=== PATIENT | male | born 1940 | race Caucasian/White ===

== ENCOUNTER 2016-10-05 08:46 | Inpatient (IN) | payer OTHER ==
--- NOTE | 2016-10-05 09:01 | EDPHY ---
H & P Stated Complaint: Low back pain x several months;now w/sciatic pain and numbness LLE Time Seen by Provider: 10/05/16 09:01 HPI/ROS: CHIEF COMPLAINT: Low back pain, increasing weakness left leg, paresthesias right leg HISTORY OF PRESENT ILLNESS: The patient has had a 3 month history of low back pain. He attributes this to initial injury sustained while working with horses. Over the past week he has had increasing weakness in his left leg and paresthesias in his left foot and right great toe. The patient denies bowel or bladder dysfunction. The patient states that he cannot fully support his weight on his left leg secondary to the weakness and decreased sensation. The patient denies recent fall or trauma. The patient is not on anticoagulants. The patient has no history of malignancy. The patient does have a history of hypertension. The patient denies any recent fever, illness, surgical procedure or dental procedure. REVIEW OF SYSTEMS: A comprehensive 10 point review of systems is otherwise negative aside from elements mentioned in the history of present illness. Source: Patient - Personal History Current Tetanus Diphtheria and Acellular Pertussis (TDAP): Yes - Medical/Surgical History Hx Cardiac Disease: Yes Other PMH: HTN - Social History Smoking Status: Never smoked - Physical Exam Exam: General Appearance: Alert, mild discomfort secondary to pain Eyes: Pupils equal and round no pallor or injection ENT, Mouth: Mucous membranes moist Respiratory: There are no retractions, lungs are clear to auscultation Cardiovascular: Regular rate and rhythm Gastrointestinal: Abdomen is soft and nontender, no masses, bowel sounds normal Neurological: Alert and oriented x4, 5/5 strength noted all 4 extremities, patient does have some difficulty keeping his left leg flexed, patient reports decreased sensation to light touch throughout the left lower extremity below the knee, patient reports decreased sensation to light touch in the right great toe Skin: Warm and dry, no rashes Musculoskeletal: Tenderness to palpation throughout the lower lumbar sacral spine Extremities: symmetrical, full range of motion Psychiatric: Patient is oriented X 3, there is no agitation Constitutional: Initial Vital Signs Temperature (C) 36.6 C 10/05/16 08:50 Heart Rate 80 10/05/16 08:50 Respiratory Rate 18 10/05/16 08:50 Blood Pressure 214/130 H 10/05/16 08:50 O2 Sat (%) 93 10/05/16 08:50 O2 Delivery Mode Room Air Allergies/Adverse Reactions: No Known Allergies Allergy (Verified 10/05/16 08:49) Home Medications: Medication Instructions Recorded Aspirin [Aspirin 81mg (*)] 81 mg PO DAILY 10/05/16 Lisinopril [Zestril 40 mg (*)] 40 mg PO 10/05/16 Metoprolol Succinate Xr [Toprol Xl 50 mg PO DAILY 10/05/16 50 mg (*)] Medical Decision Making - Diagnostics Imaging Results: Imaging Impressions Lumbar Spine MRI 10/05/16 09:11 Impression: 1. Limited sagittal T1 and localizer series only. Recommend completing study when the patient's pain is under control or consider CT lumbar spine for additional evaluation. 2. L2-L3: Severe central canal stenosis with suspected central disk herniation. 3. L4-L5: Moderate to severe central canal stenosis secondary to disk herniation. 4. L5-S1: Moderate to severe bilateral neural foraminal stenosis secondary to facet arthropathy. Findings and recommendations discussed with Emergency Department physician, Cade Galvan at 10:30 a.m. on October 05, 2016. Final report concurs with initial preliminary interpretation. ED Course/Re-evaluation: The patient presents to the ED with 3 months of low back pain and increasing lower extremity numbness and weakness. The patient was noted to be grossly neurologically intact without evidence of an obvious cauda equina syndrome on my initial evaluation. The patient did have an IV established. He received IV Ativan, morphine and fentanyl. The patient has been taken for a stat MRI of his lumbar spine given his reported history of gait instability and increasing paresthesias. The patient all was unable to tolerate the MRI despite IV Toradol, narcotics and benzodiazepines. A limited MRI did demonstrate evidence of a spinal disease at L2-3 and L4-5. I did consult with Dr. Griffin from Neurosurgery who did a preliminary review of the limited MRI. At this point we recommend admission to the hospital for a MRI under full conscious sedation. The patient will be admitted by the hospitalist to facilitate this today. The patient will be seen in consultation by Neurosurgery. I spoke with the hospitalist at 11:00 a.m.. The patient will be admitted by Dr. Healy. I will defer to the hospitalist for arranging MRI under deep sedation verses anesthesia. The patient was noted to be quite hypertensive upon arrival when he was in severe pain. Blood pressure is now 102/74 at 11:00 a.m.. Differential Diagnosis: Differential diagnosis considered includes lumbar disc herniation, central canal stenosis, epidural hematoma, spinal tumor, cauda equina syndrome - Data Points Laboratory Results: Laboratory Results 10/05/16 09:10 10/05/16 09:10 10/05/16 10/05/16 09:10 09:10 WBC 9.10 10^3/uL 10^3/uL (3.80-9.50) RBC 4.85 10^6/uL 10^6/uL (4.40-6.38) Hgb 16.1 g/dL g/dL (13.7-17.5) Hct 46.1 % % (40.0-51.0) MCV 95.1 fL fL (81.5-99.8) MCH 33.2 pg pg (27.9-34.1) MCHC 34.9 g/dL g/dL (32.4-36.7) RDW 12.6 % % (11.5-15.2) Plt Count 250 10^3/uL 10^3/uL (150-400) MPV 9.4 fL fL (8.7-11.7) Neut % (Auto) 77.7 % H % (39.3-74.2) Lymph % (Auto) 13.3 % L % (15.0-45.0) [place] % (Auto) 6.4 % % (4.5-13.0) Eos % (Auto) 1.9 % % (0.6-7.6) Baso % (Auto) 0.2 % L % (0.3-1.7) Nucleat RBC Rel Count 0.0 % % (0.0-0.2) Absolute Neuts (auto) 7.07 10^3/uL H 10^3/uL (1.70-6.50) Absolute Lymphs (auto) 1.21 10^3/uL 10^3/uL (1.00-3.00) Absolute Monos (auto) 0.58 10^3/uL 10^3/uL (0.30-0.80) Absolute Eos (auto) 0.17 10^3/uL 10^3/uL (0.03-0.40) Absolute Basos (auto) 0.02 10^3/uL 10^3/uL (0.02-0.10) Absolute Nucleated RBC 0.00 10^3/uL 10^3/uL (0-0.01) Immature Gran % 0.5 % % (0.0-1.1) Immature Gran # 0.05 10^3/uL 10^3/uL (0.00-0.10) Sodium 137 mEq/L mEq/L (134-144) Potassium 4.1 mEq/L mEq/L (3.5-5.2) Chloride 106 mEq/L mEq/L (97-110) Carbon Dioxide 19 mEq/l L mEq/l (22-31) Anion Gap 12 mEq/L mEq/L (8-16) BUN 15 mg/dL mg/dL (7-23) Creatinine 0.8 mg/dL mg/dL (0.7-1.3) Estimated GFR > 60 Glucose 110 mg/dL H mg/dL (70-100) Calcium 9.5 mg/dL mg/dL (8.5-10.4) Medications Given: Discontinued Medications Fentanyl (Sublimaze) 100 mcg IVP EDNOW ONE Stop: 10/05/16 09:40 Last Admin: 10/05/16 09:50 Dose: 100 mcg Ketorolac Tromethamine (Toradol) 30 mg IVP EDNOW ONE Stop: 10/05/16 10:30 Last Admin: 10/05/16 10:32 Dose: 30 mg Lorazepam (Ativan Injection) 1 mg IVP EDNOW ONE Stop: 10/05/16 09:12 Last Admin: 10/05/16 09:28 Dose: 1 mg Morphine Sulfate (Morphine) 4 mg IVP EDNOW ONE Stop: 10/05/16 09:12 Last Admin: 10/05/16 09:50 Dose: 4 mg Departure - Departure Disposition: [facility] Clinical Impression: Severe low back pain, Lumbar disc herniation, Lumbar stenosis Condition: Good Referrals: NONE *PRIMARY CARE P,. [Primary Care Provider] - As per Instructions
[2016-10-05] MEDS ORDERED: LORazepam 2 MG/ML INJ IVP ONE (09:11)
[2016-10-05 09:27] LABS: % IMMATURE GRANULYOCYTES 0.5 % (0.0-1.1); ABSOLUTE IMMATURE GRANULOCYTES 0.05 10^3/uL (0.00-0.10); ADD DIFF? NO; ADD MORPH? NO; ADD SCAN? NO; ATYPICAL LYMPHOCYTE FLAG 0 (0-99); FRAGMENT RBC FLAG 0 (0-99); HEMATOCRIT 46.1 % (40.0-51.0); HEMOGLOBIN 16.1 g/dL (13.7-17.5); LEFT SHIFT FLG 10 (0-99); LIPEMIA HEMOLYSIS FLAG 90 (0-99); MEAN CELL HEMOGLOBIN 33.2 pg (27.9-34.1); MEAN CELL HEMOGLOBIN CONCENTR. 34.9 g/dL (32.4-36.7); MEAN CELL VOLUME 95.1 fL (81.5-99.8); MEAN PLATELET VOLUME 9.4 fL (8.7-11.7); PLATELET CLUMPS FLAG 0 (0-99); PLATELET COUNT 250 10^3/uL (150-400); RED BLOOD CELL COUNT 4.85 10^6/uL (4.40-6.38); RED CELL DISTRIBUTION WIDTH 12.6 % (11.5-15.2)
[2016-10-05] MEDS ORDERED: fentaNYL 100 MCG/2 ML INJ IVP ONE (09:39)
[2016-10-05 09:52] LABS: ANION GAP 12 mEq/L (8-16); CALCIUM 9.5 mg/dL (8.5-10.4); CARBON DIOXIDE 19 mEq/l (22-31); CHLORIDE 106 mEq/L (97-110); CREATININE 0.8 mg/dL (0.7-1.3); GLOMERULAR FILTRATION RATE > 60; GLUCOSE 110 mg/dL (70-100); POTASSIUM 4.1 mEq/L (3.5-5.2); SODIUM 137 mEq/L (134-144)
[2016-10-05] MEDS ORDERED: KETOROLAC 30 MG/1 ML SDV ONE (10:12)
[2016-10-05] MEDS ORDERED: KETOROLAC 30 MG/1 ML SDV IVP ONE ×2 (10:29→16:00)
[2016-10-05] MEDS ORDERED: ONDANSETRON 4 MG/2 ML VIAL IVP PRN (14:27)
[2016-10-05] MEDS ORDERED: ACETAMINOPHEN 325 MG TAB PO PRN (14:27)
[2016-10-05] MEDS ORDERED: ONDANSETRON DISINTEGRATING 4 MG TAB PO PRN (14:27)
--- NOTE | 2016-10-05 15:00 | GHP ---
[f rep st] HISTORY AND PHYSICAL DATE OF ADMISSION: 10/05/2016 CHIEF COMPLAINT: Back pain. HISTORY OF PRESENT ILLNESS: A 76-year-old male with a history of hypertension. About 3 months ago, he had an incident with a horse where his shoulder was thrown back and it felt like he twisted his back in a traumatic way. Since then, he has been having pain in his back, as well as in his thighs that has been intermittent. It was better with sitting. However, the last week the pain has become unrelenting. It is associated with pain going down both legs, but especially the left leg. He als o has numbness and tingling from the knees down, and weakness. The unrelenting pain made him come t o the emergency department. He denies any fevers or chills. No chest pain or shortness of breath. REVIEW OF SYSTEMS: A 10-point review of systems was obtained and otherwise negative. PAST MEDICAL HISTORY: Hypertension. MEDICATIONS: Reviewed. SOCIAL HISTORY: No smoking, 1-2 drinks per night. FAMILY HISTORY: Reviewed and noncontributory. PHYSICAL EXAM: VITAL SIGNS: Afebrile, blood pressure is 121/78, heart rate 66, oxygen saturation 9 2% on room air. GENERAL: The patient is well developed, in no apparent distress. HEENT: Nonicter ic sclerae. Extraocular movements intact. Moist mucous membranes. NECK: Supple. No thyromegaly. LUNGS: Good effort. Clear to auscultation bilaterally. CARDIOVASCULAR: Regular rate and rhythm . No murmurs, gallops. ABDOMEN: Positive bowel sounds. Soft, nontender, nondistended. No hepato splenomegaly. EXTREMITIES: No clubbing, cyanosis, or edema. SKIN: Without rash, intact. NEUROLO GIC: Alert and oriented x3. He has decreased quadriceps strength on the right. Decreased sensatio n to light touch on the left lower extremity. PYSCH: Normal mood and affect. LABS: CBC and chemistry are normal. MRI of the lumbar spine was partially done due to pain, sugges ts severe central canal stenosis and disk herniation of L2 and L3, as well as L4-L5. ASSESSMENT: This is a 76-year-old male presenting with severe radiculopathy and back pain. PLAN: 1. Severe back pain, initial MRI is consistent with a herniated disk with the patient having signif icant radicular symptoms. Neurosurgery has been called. They were requesting a better MRI. The pa olivia states that he is feeling a lot better now in terms of pain than when he 1st came in, and feel s confident that he could complete the MRI. I would prefer we try an MRI without conscious sedation and premedicate with pain medications prior to getting anesthesia involved. I discussed the case w ith MRI. We will give another dose of Toradol in a couple hours and will premedicate with morphine. 2. Hypertension. Will continue his medications. /[id number]/MODL
[2016-10-05] MEDS: oxyCODONE IR 5 MG TAB PO PRN ×2 (15:44→20:48)
[2016-10-05] MEDS: NS 1,000 ML IV SCH (15:44)
--- NOTE | 2016-10-05 17:17 | GCON ---
[f rep st] CONSULTATION NEUROSURGERY CONSULTATION CHIEF COMPLAINT: Back pain and tingling in his bilateral legs. HISTORY OF PRESENT ILLNESS: The patient is a 76-year-old male patient who has a past medical history significant for hypertension only. He states that approximately 3 months ago he had a problem when he was working with his horse, and he had some trauma to his low back. Since then, he has been having pain in his back and into his thighs that comes and goes. He has been working with his friend who is a chiropractor on manipulations which has helped him somewhat. However, for the past week, the pain has become severe. He states that last night he was stuck on the floor and could not get up. In the morning, he was still feeling poorly and subsequently came to the emergency room for further evaluation. He complained of pain down both legs, but the left leg is worse. He has numbness and tingling in bilateral legs but more severe in the left leg from the knee down. He states that he feels like the weakness is below his knees as well. On examination today, the patient was resting in bed. He states he had been given some pain medication which did help with the pain. He reports that earlier in the day he was not able to lie flat and be still for an MRI. He states if he does not move, he is doing okay but still does have the numbness. At this time, his pain is fairly well managed. REVIEW OF SYSTEMS: Please see the above-mentioned in the HPI. PAST MEDICAL HISTORY: Hypertension. PAST SURGICAL HISTORY: None. SOCIAL HISTORY: The patient is recently retired. He is originally from the . He reports he has a glass of wine with lunch and dinner each day. He denies any drug use. No smoking. FAMILY HISTORY: The patient reports that his mother had known lumbar spine issues for a very long time. She ultimately of vaginal cancer. PHYSICAL EXAMINATION: VITAL SIGNS: Blood pressure 129/78, heart rate 66, respirations 16, O2 saturation is 92% on room air. Temperature is 36.6. GENERAL: Well-developed, well-nourished male patient in no acute distress. HEENT: His head is normocephalic and atraumatic. NEUROLOGIC: Cranial nerves 2 -12 are grossly intact. Motor examination of bilateral upper extremities is 5/ 5 for deltoid, triceps, biceps, and hand cooker helper. He has intact sensation over his arms and chest. Motor examination of the bilateral lower extremities is 5/ 5 for hip flexion, flexion/extension of the knee, and plantar and dorsiflexion. He has absent bilateral patellar reflexes. He has decreased sensation to light touch in bilateral lower extremities, however, is more severe on the left side. No clonus. Negative Babinski. He otherwise reports normal sensation throughout the normal dermatomal distribution of his body. LABORATORY: White blood cells 9.10, red blood cells 4.85, hemoglobin 16.1, hematocrit 46.1, RDW 12.6, platelet count is 250. Sodium 137, potassium 4.1, chloride 106, carbon dioxide 19, anion gap 12, BUN 15, creatinine 0.8, GFR greater than 60, glucose 110, calcium 9.5. IMAGING: Limited lumbar spine MRI without contrast, limited sagittal T1 and localizer series only, recommend completing study when patient's pain is under control or consider CT lumbar spine for additional evaluation. L2-L3 severe central canal stenosis with suspected central disk herniation, L4-L5 moderate to severe central canal stenosis secondary to disk herniation, L5-S1 moderate to severe bilateral neural foraminal stenosis secondary to facet arthropathy. IMPRESSION: This is a 76-year-old male patient with acute low back pain and tingling in his legs with some functional weakness who had a traumatic event approximately 3 months ago. Now with an acute exacerbation of his pain. PLAN: I have seen and examined the patient on [facility] [address] today. Other than some numbness in his legs, I did not appreciate any significant neurological deficit. I did not however get him out of bed due to his pain. Per RN report patient can barely bear weight when he tries to ambulate. He does not have any issues with bladder or bowel control. At this time, we will plan for the patient to complete a full MRI with sedation so we can better evaluate what he has going on in his low back. There is certainly a chance he may require surgery; however, at this time, I would not expect it to be an emergent surgery. I have discussed the patient with Dr. Edenilson Atkins who will be in to examine the patient as well today. The neurosurgery service will continue to follow along with this patient. Please contact our office with any additional questions or concerns. /[id number]/MODL MTDD
[2016-10-05] MEDS: METOPROLOL SUCCINATE XR 50 MG TAB PO SCH (20:48)
[2016-10-05] MEDS: MAGNESIUM OXIDE 400 MG TAB PO SCH (20:48)
[2016-10-05] MEDS: METHOCARBAMOL 500 MG TAB PO SCH (20:48)
[2016-10-06] MEDS: oxyCODONE IR 5 MG TAB PO PRN ×5 (05:53→21:19)
[2016-10-06] MEDS: METHOCARBAMOL 500 MG TAB PO SCH ×4 (05:53→21:17)
[2016-10-06] MEDS: MAGNESIUM OXIDE 400 MG TAB PO SCH (08:41)
[2016-10-06] MEDS: METOPROLOL SUCCINATE XR 50 MG TAB PO SCH ×2 (08:41→21:19)
[2016-10-06] MEDS: LISINOPRIL 40 MG TAB PO SCH (08:41)
--- NOTE | 2016-10-06 08:45 | SOAPPROG ---
[facility] Progress Note Assessment/Plan: Assessment: 76M with acute bilateral leg pain and inability to walk due to pain , MRI shows large disc herniation at L2-3 with severe canal stenosis, He also has lateral recess stenosis at L4-5 Plan: - will need L2-3 laminectomy/discectomy, Dr. Atkins saw him yesterday and is trying to plan surgery for Saturday - If able to ambulate safely, could go home before surgery and return as an outpatient, but he says he does not have help at home to be able to get around - continue pain control, will try some toradol - OK for DVT ppx 10/06/16 08:41 Subjective: pain tolerable when he is not moving Objective: Vital Signs Temp Pulse Resp BP Pulse Ox 36.8 C 62 17 165/99 H 91 L 10/06/16 07:54 10/06/16 07:54 10/06/16 07:54 10/06/16 07:54 10/06/16 07:54 10/05/16 10/06/16 10/07/16 05:59 05:59 05:59 Intake Total 1600 200 Output Total 550 Balance 1050 200 AAOx3 strength full at HF, KF/KE, PF/DF bilaterally loss of light touch/pinprick below the knee L>R - Pending Discharge Pending Discharge Within 24 Hours: No Pending Discharge Within 48 Hours: No ICD10 Worksheet Patient Problems: Problems Problem Status Onset Lumbar disc herniation Acute Lumbar stenosis Acute Severe low back pain Acute
[2016-10-06] MEDS: ENOXAPARIN 40 MG/0.4 ML SYR SC SCH (09:40)
[2016-10-06] MEDS ORDERED: BISACODYL 10 MG SUPP PR PRN ×2 (11:02→11:04)
[2016-10-06] MEDS ORDERED: MAGNESIUM HYDROXIDE 30 ML UDCUP PO PRN ×2 (11:02→11:04)
[2016-10-06] MEDS ORDERED: POLYETHYLENE GLYCOL 3350 17 GM PKT PO PRN ×2 (11:02→11:04)
[2016-10-06] MEDS ORDERED: LACTULOSE 20 GM/30 ML UDCUP PO PRN ×2 (11:02→11:04)
[2016-10-06] MEDS ORDERED: SENNOSIDES/DOCUSATE SODIUM TAB PO SCH (11:15)
[2016-10-06] MEDS: SENNOSIDES/DOCUSATE SODIUM TAB PO SCH ×2 (11:45→21:20)
--- NOTE | 2016-10-06 15:24 | HOSPPROG ---
Hospitalist Progress Note Assessment/Plan: * herniated lumbar disc with radicular symptoms * surgery planned for next week * continue pain control * holding aspirin * history of hypertension * DVT prophylaxis Subjective: pain seems better controlled Objective: Vital Signs Temp Pulse Resp BP Pulse Ox 36.8 C 64 17 165/99 H 88 L 10/06/16 07:54 10/06/16 09:40 10/06/16 07:54 10/06/16 07:54 10/06/16 09:40 10/05/16 10/06/16 10/07/16 05:59 05:59 05:59 Intake Total 1600 200 Output Total 550 Balance 1050 200 - Physical Exam Constitutional: no apparent distress, appears nourished, not in pain Eyes: anicteric sclera, EOMI Ears, Nose, Mouth, Throat: moist mucous membranes, hearing normal Respiratory: no respiratory distress Skin: warm Neurologic: AAOx3 Psychiatric: interacting appropriately, not anxious, not encephalopathic, thought process linear ICD10 Worksheet Patient Problems: Problems Problem Status Onset Lumbar disc herniation Acute Lumbar stenosis Acute Severe low back pain Acute
[2016-10-06] MEDS: traMADol 50 MG TAB PO PRN (19:36)
[2016-10-07] MEDS: oxyCODONE IR 5 MG TAB PO PRN ×7 (01:25→23:37)
[2016-10-07] MEDS: METHOCARBAMOL 500 MG TAB PO SCH ×4 (06:02→20:58)
[2016-10-07] MEDS: SENNOSIDES/DOCUSATE SODIUM TAB PO SCH ×2 (08:52→20:58)
[2016-10-07] MEDS: LISINOPRIL 40 MG TAB PO SCH (08:53)
[2016-10-07] MEDS: METOPROLOL SUCCINATE XR 50 MG TAB PO SCH ×2 (08:54→20:58)
[2016-10-07] MEDS: MAGNESIUM OXIDE 400 MG TAB PO SCH (08:54)
--- NOTE | 2016-10-07 09:48 | SOAPPROG ---
[facility] Progress Note Assessment/Plan: Assessment: 76M with acute bilateral leg pain and inability to walk due to pain , MRI shows large disc herniation at L2-3 with severe canal stenosis, He also has lateral recess stenosis at L4-5 Plan: - will need L2-3 laminectomy/discectomy, Dr. Atkins trying to plan surgery for Saturday - probably not ambulating well enough to d/c home prior to surgery - could try toradol for pain control, I will order this - OK for DVT ppx 10/06/16 08:41 10/07/16 09:43 Subjective: c/o more back pain than leg pain today Objective: Vital Signs Temp Pulse Resp BP Pulse Ox 37.5 C 78 16 155/92 H 84 L 10/07/16 08:00 10/07/16 08:00 10/07/16 08:00 10/07/16 08:00 10/07/16 08:00 10/06/16 10/07/16 10/08/16 05:59 05:59 05:59 Intake Total 1600 1650 Output Total 550 850 250 Balance 1050 800 -250 exam stable, mild numbness below the knee on the left, otherwise full strength/ sensation - Pending Discharge Pending Discharge Within 24 Hours: No Pending Discharge Within 48 Hours: No ICD10 Worksheet Patient Problems: Problems Problem Status Onset Lumbar disc herniation Acute Lumbar stenosis Acute Severe low back pain Acute
[2016-10-07] MEDS: KETOROLAC 15 MG/1 ML SDV IVP SCH ×3 (10:32→23:37)
[2016-10-07] MEDS: ENOXAPARIN 40 MG/0.4 ML SYR SC SCH (10:32)
--- NOTE | 2016-10-07 11:42 | HOSPPROG ---
Hospitalist Progress Note Assessment/Plan: * herniated lumbar disc with radicular symptoms * surgery planned for next week * continue pain control * holding aspirin * history of hypertension * DVT prophylaxis Subjective: pain well controlled. No new complaints Objective: Vital Signs Temp Pulse Resp BP Pulse Ox 37.5 C 78 16 155/92 H 84 L 10/07/16 08:00 10/07/16 08:00 10/07/16 08:00 10/07/16 08:00 10/07/16 08:00 10/06/16 10/07/16 10/08/16 05:59 05:59 05:59 Intake Total 1600 1650 Output Total 550 850 350 Balance 1050 800 -350 - Physical Exam Constitutional: no apparent distress, appears nourished, not in pain Eyes: anicteric sclera, EOMI Ears, Nose, Mouth, Throat: moist mucous membranes Respiratory: no respiratory distress Neurologic: AAOx3 Psychiatric: interacting appropriately, not anxious, not encephalopathic, thought process linear ICD10 Worksheet Patient Problems: Problems Problem Status Onset Lumbar disc herniation Acute Lumbar stenosis Acute Severe low back pain Acute
[2016-10-07] MEDS: traMADol 50 MG TAB PO PRN (21:02)
[2016-10-08] MEDS: KETOROLAC 15 MG/1 ML SDV IVP SCH ×4 (04:56→23:57)
[2016-10-08] MEDS: oxyCODONE IR 5 MG TAB PO PRN ×2 (04:57→23:57)
[2016-10-08] MEDS: METHOCARBAMOL 500 MG TAB PO SCH ×4 (04:57→20:03)
--- NOTE | 2016-10-08 07:32 | NEUSURGPN ---
Assessment/Plan: Assessment: 76 yo M with acute bilateral leg pain and inability to walk due to pain, MRI shows large disc herniation at L2-3 with severe canal stenosis, He also has lateral recess stenosis at L4-5 Plan: - will need L2-3 laminectomy/discectomy, Dr. Atkins trying to plan surgery for Saturday - probably not ambulating well enough to d/c home prior to surgery - NPO after midnight - orders in - will confirm with Dr Sarmiento regarding plan for surgery for tomorrow - could try toradol for pain control-Dr Griffin ordered this already - OK for DVT ppx - call for any changes or issues - take medications as directed Subjective: Awake and alert. NAD. Eating/drinking and voiding. No f/c/n/v/d. Objective: AAO x 3, PERRLA/EOMI no droop CN 2-12 grossly intact +lt touch 5/5 BUE/BLE = Neuro Check Frequency: per routine Urinary Catheter in Place: No - Physician Discussed Patient with : Wilbert Patient Seen by : Wilbert Neurosurgery Physical Exam - Vitals, I&O, Labs I and O 10/07/16 10/08/16 10/09/16 05:59 05:59 05:59 Intake Total 1650 1050 Output Total 850 775 Balance 800 275 Intake: Oral (ml) 1650 1050 Output: Urine (ml) 850 775 Bedside Commode 600 250 Urinal 250 525 Other: Intake Quantity Yes Yes Sufficient Number of Voids Bedside Commode 1 1 Urinal 1 Number of Stools Bedside Commode 1 1 Vital Signs Temp Pulse Resp BP Pulse Ox 37.2 C 67 15 123/82 H 89 L 10/07/16 23:34 10/07/16 23:34 10/07/16 23:34 10/07/16 23:34 10/07/16 23:34 ICD10 Worksheet Patient Problems: Problems Problem Status Onset Lumbar disc herniation Acute Lumbar stenosis Acute Severe low back pain Acute
[2016-10-08] MEDS: SENNOSIDES/DOCUSATE SODIUM TAB PO SCH ×2 (08:24→21:15)
[2016-10-08] MEDS: ENOXAPARIN 40 MG/0.4 ML SYR SC SCH ×2 (08:24→08:52)
[2016-10-08] MEDS: METOPROLOL SUCCINATE XR 50 MG TAB PO SCH ×2 (08:25→20:03)
[2016-10-08] MEDS: LISINOPRIL 40 MG TAB PO SCH (08:25)
[2016-10-08] MEDS: MAGNESIUM OXIDE 400 MG TAB PO SCH (08:26)
--- NOTE | 2016-10-08 15:58 | HOSPPROG ---
Hospitalist Progress Note Assessment/Plan: * herniated lumbar disc with radicular symptoms * surgery planned for tomorrow * continue pain control * holding aspirin * history of hypertension * DVT prophylaxis * on hold for surgery tomorrow Subjective: no new complaints. pain well controlled Objective: Vital Signs Temp Pulse Resp BP Pulse Ox 37.2 C 59 L 16 122/74 H 90 L 10/08/16 15:31 10/08/16 15:31 10/08/16 15:31 10/08/16 15:31 10/08/16 15:31 10/07/16 10/08/16 10/09/16 05:59 05:59 05:59 Intake Total 1650 1050 Output Total 850 775 Balance 800 275 - Physical Exam Constitutional: no apparent distress, appears nourished, not in pain Eyes: anicteric sclera Ears, Nose, Mouth, Throat: moist mucous membranes, hearing normal Cardiovascular: regular rate and rhythym, no murmur, rub, or gallop Respiratory: no respiratory distress, no rales or rhonchi, clear to auscultation ICD10 Worksheet Patient Problems: Problems Problem Status Onset Lumbar disc herniation Acute Lumbar stenosis Acute Severe low back pain Acute
[2016-10-08] MEDS: NS 1,000 ML IV SCH (23:58)
[2016-10-09] MEDS: KETOROLAC 15 MG/1 ML SDV IVP SCH ×2 (05:33→12:06)
[2016-10-09] MEDS: METHOCARBAMOL 500 MG TAB PO SCH ×4 (05:36→20:08)
[2016-10-09] MEDS ORDERED: LR 1,000 ML IV ONE (06:12)
[2016-10-09] MEDS ORDERED: BACITRACIN 50,000 UNITS/10 ML SYR IRR ONE (06:48)
[2016-10-09] MEDS ORDERED: THROMBIN (BOVINE) 5,000 UNIT VIAL TP ONE (06:48)
[2016-10-09] MEDS ORDERED: BUPIVACAINE/EPI 0.25% 30 ML SDV ONE (06:48)
[2016-10-09] MEDS ORDERED: PROPOFOL/EMULSION 500 MG/50 ML BOTTLE IV ONE ×3 (07:04→07:06)
[2016-10-09] MEDS ORDERED: REMIFENTANIL HCL 1 MG VIAL ONE ×3 (07:04)
[2016-10-09] MEDS ORDERED: HYDROmorphONE/DILAUDID 2 MG/ML INJ ONE (07:06)
[2016-10-09] MEDS ORDERED: ceFAZolin 2 GM/DEXTROSE 100 ML IV ONE (07:15)
[2016-10-09] MEDS ORDERED: ONDANSETRON 4 MG/2 ML VIAL ONE (07:38)
[2016-10-09] MEDS ORDERED: DEXAMETHASONE 4 MG/ML VIAL ONE ×2 (07:38)
[2016-10-09] MEDS ORDERED: epHEDrine SULFATE 10 MG/ML SYR ONE (07:38)
[2016-10-09] MEDS ORDERED: NALOXONE HCL 0.4 MG/ML INJ IVP PRN (08:07)
[2016-10-09] MEDS ORDERED: HYDROCODONE/APAP 5/325 TAB PO PRN (08:07)
[2016-10-09] MEDS ORDERED: ACETAMINOPHEN 500 MG TAB PO PRN (08:07)
[2016-10-09] MEDS ORDERED: ONDANSETRON 4 MG/2 ML VIAL IVP PRN ×2 (08:07→09:05)
[2016-10-09] MEDS ORDERED: LR 500 ML IV PRN (08:07)
[2016-10-09] MEDS ORDERED: OXYCODONE/APAP 5/325 TAB PO PRN (08:07)
[2016-10-09] MEDS ORDERED: fentaNYL 100 MCG/2 ML INJ IVP PRN (08:07)
[2016-10-09] MEDS ORDERED: ALBUTEROL 3 ML DEYVIAL IH PRN (08:07)
[2016-10-09] MEDS ORDERED: HYDROmorphONE/DILAUDID 1 MG/ML SYR IVP PRN (08:07)
--- NOTE | 2016-10-09 08:07 | PDANEPAE ---
ANE History of Present Illness 76yo M for Lumbar Microdisc ANE Past Medical History - Cardiovascular History Hx Hypertension: Yes Hx Palpitations: Yes - Pulmonary History Hx COPD: No Hx Asthma/Reactive Airway Disease: No Hx Recent Upper Respiratory Infection: No Hx Oxygen in Use at Home: No - Renal History Hx Renal Disorders: No - Liver History Hx Hepatic Disorders: No - GI History Hx Gastrointestinal Disorders: No ANE Review of Systems Review of systems is: negative - Exercise capacity Exercise capacity: limited by disability ANE Patient History - Allergies Allergies/Adverse Reactions: No Known Allergies Allergy (Verified 10/05/16 08:49) - Home Medications Home medications: home medication list seen and reviewed Home Medications: Aspirin [Aspirin 81mg (*)] 81 mg PO DAILY 10/05/16 [Last Taken Unknown] Gabapentin [Neurontin 100 MG (*)] 200 mg PO BID 10/05/16 [Last Taken 10/04/16 100 MG] Herbals/Supplements -Info Only 1 ea PO DAILY 10/05/16 [Last Taken Unknown] Lisinopril [Zestril 40 mg (*)] 40 mg PO DAILY 10/05/16 [Last Taken Unknown] Metoprolol Succinate Xr [Toprol Xl 50 mg (*)] 50 mg PO BID 10/05/16 [Last Taken Unknown] traMADol HCL [Ultram] 50 - 100 mg PO BID PRN 10/05/16 [Last Taken 10/04/16] - NPO status NPO Since - Liquids (Date): 10/09/16 NPO Since - Liquids (Time): 00:00 NPO Since - Solids (Date): 10/09/16 NPO Since - Solids (Time): 00:00 - Smoking Hx Smoking Status: Never smoked - Alcohol Use Alcohol Use: Occasionally ANE Labs/Vital Signs - Labs Result Diagrams: 10/05/16 09:10 10/05/16 09:10 - Vital Signs Blood Pressure: 157/92 Heart Rate: 60 Respiratory Rate: 15 O2 Sat (%): 93 Height: 180.34 cm Weight: 86.183 kg ANE Physical Exam - Airway Neck exam: FROM Mallampati Score: Class 2 Mouth exam: normal dental/mouth exam - Pulmonary Pulmonary: clear to auscultation - Cardiovascular Cardiovascular: regular rate and rhythym - ASA Status ASA Status: II ANE Anesthesia Plan Anesthesia Plan: general endotracheal anesthesia
--- NOTE | 2016-10-09 09:04 | POSTOPPROG ---
Post Op Note Date of Operation: 10/09/16 Surgeon: Edenilson Atkins Food Inspector: German Anesthesiologist: Chip Anesthesia: GET(General Endotracheal) Pre-op Diagnosis: L2/3 HNP Post-op Diagnosis: same Indication: Leg pain, severe spinal stenosis Procedure: Left L2/3 Microdiscectomy Findings: L2/3 HNP Inf/Abcess present in the surg proc area at time of surgery?: No EBL: 100-500 Complications: none
[2016-10-09] MEDS ORDERED: ONDANSETRON DISINTEGRATING 4 MG TAB PO PRN (09:05)
[2016-10-09] MEDS ORDERED: diphenhydrAMINE 25 MG CAP PO PRN (09:05)
--- NOTE | 2016-10-09 09:12 | POSTANESTH ---
Post Anesthetic Evaluation Cardiovascular Status: Normal, Stable Respiratory Status: Normal, Stable Level of Consciousness/Mental Status: Can Participate in Eval Pain Control: Adequate, Prn Tx Ordered Nausea/Vomiting Control: Adequate, Prn Tx Ordered Complications Possibly Related to Anesthesia: None Noted
--- NOTE | 2016-10-09 09:59 | SOAPPROG ---
SOAP Progress Note Assessment/Plan: Assessment: POST OP CHECK: doing well after Left L2/3 LUIS Plan: CPM in PACU. transfer back to floor per protocol 10/09/16 09:56 10/09/16 09:57 Subjective: awake, alert, uncomfortable Objective: Vital Signs Temp Pulse Resp BP Pulse Ox 36.6 C 60 15 157/92 H 93 10/09/16 09:29 10/09/16 08:06 10/09/16 08:06 10/09/16 08:06 10/09/16 08:06 10/08/16 10/09/16 10/10/16 05:59 05:59 05:59 Intake Total 1050 950 Output Total 775 750 150 Balance 275 -750 800 Neuro: CRANDALL to command, sens+Lt right DF/EHL weakness unchanged 4-/5 left DF/EHL 5/5 Vitals: BP: 118/73 HR: 76 02: 97% ICD10 Worksheet Patient Problems: Problems Problem Status Onset Lumbar disc herniation Acute Lumbar stenosis Acute Severe low back pain Acute
[2016-10-09] MEDS: METOPROLOL SUCCINATE XR 50 MG TAB PO SCH ×2 (10:05→20:08)
[2016-10-09] MEDS: LISINOPRIL 40 MG TAB PO SCH (10:05)
[2016-10-09] MEDS: MAGNESIUM OXIDE 400 MG TAB PO SCH (10:05)
[2016-10-09] MEDS: SENNOSIDES/DOCUSATE SODIUM TAB PO SCH ×2 (10:06→20:09)
--- NOTE | 2016-10-09 12:11 | GOP ---
[f rep st] OPERATIVE REPORT DATE OF OPERATION: 10/09/2016 SURGEON: Edenilson Atkins MD MANUFACTURING LAB TECHNICIAN: DANIEL Loera. ANESTHESIA: General endotracheal. PREOPERATIVE DIAGNOSIS: Large left paracentral and central L2-3 disk herniation with critical spina l stenosis and progressive weakness, intractable pain and dysfunction. Failed conservative care. POSTOPERATIVE DIAGNOSIS: Large left paracentral and central L2-3 disk herniation with critical spin al stenosis and progressive weakness, intractable pain and dysfunction. Failed conservative care. PROCEDURE PERFORMED: Minimally invasive left-sided L2-3 posterior hemilaminectomy, medial facetecto my, and diskectomy with use of intraoperative microscopy with fluoroscopy. FINDINGS: ESTIMATED BLOOD LOSS: 150 cc INDICATIONS: The patient is a 76-year-old male with intractable low back pain, left lower extremity radicular discomfort and progressive weakness who has a gigantic L2-3 disk herniation, and presents for surgical decompression through a minimally invasive approach after failing conservative care. DESCRIPTION OF PROCEDURE: After informed consent was obtained, the patient was taken to the operati ng room and placed in a prone position on the Cristopher frame. The lumbosacral area was prepped and dr aped in a sterile fashion. After fluoroscopic localization of correct levels, the subcutaneous and intramuscular tissues were infiltrated with local anesthesia. A midline linear incision was then cr eated over the L2-3 spinous processes. This was carried down the fascial layer, which was then inci sed using the monopolar electrocautery and carried in a subperiosteal plane along the spinous proces ses of the lamina on the left. Intraoperative fluoroscopy was again utilized to verify the correct level. Following this, a left-sided L2-3 posterior hemilaminectomy defect was created using the Str [employer] drill system with a massive fluted bur and the Kerrison rongeurs. The ligamentum flavum was ca refully elevated and the dura noted to be draped over a very large disk herniation. This required a slight medial facetectomy in order to adequately get around the thecal sac and nerve root. Care wa s taken to not remove too much of the joint to destabilize the level. Following this, the shoulder of the L3 nerve root was very carefully retracted medially and multiple large pieces of disk herniat ion were identified and removed with the help of the Alex instrument and the nerve hook in order to palpate and pull disk herniations out from more medially where there was an extremely large amoun t of disk material. The area was carefully explored rostrally, caudally, medially and laterally and all disk material removed. There was quite a bit of epidural bleeding from the veins that were ute y congested. These were coagulated using careful bipolar electrocauterization under high-power micr oscopy. The wound and epidural space were then copiously irrigated with antibiotic irrigation and m eticulous hemostasis was achieved. The subcutaneous and intramuscular tissues were re-infiltrated w ith local anesthesia and the wound was closed in a layered fashion using interrupted Vicryl sutures followed by Steri-Strips on the skin. COMPLICATIONS: None. DISPOSITION: The patient is currently in the process of being repositioned for extubation. /[id number]/MODL
[2016-10-09] MEDS: ceFAZolin 2 GM/DEXTROSE 100 ML IV SCH ×2 (13:49→22:05)
--- NOTE | 2016-10-09 15:13 | HOSPPROG ---
Hospitalist Progress Note Assessment/Plan: L2-L3 disc herniation s/p discectomy - POD #0. Post-op management per neurosurgery, pain control, PT/OT. Hypertension - well controlled, cont lisinopril, metoprolol DVT PPLX - Lovenox Full code Dispo - cont inpt, PT/OT Subjective: Pt feels well post-op. Denies pain. No N/V. No CP or SOB. Doesn' t feel ready to walk yet. Objective: Vital Signs Temp Pulse Resp BP Pulse Ox 36.7 C 66 17 126/84 H 94 10/09/16 12:59 10/09/16 12:59 10/09/16 12:59 10/09/16 12:59 10/09/16 12:59 10/08/16 10/09/16 10/10/16 05:59 05:59 05:59 Intake Total 1050 950 Output Total 775 750 500 Balance 275 -750 450 - Physical Exam Constitutional: no apparent distress Eyes: PERRL Ears, Nose, Mouth, Throat: moist mucous membranes Cardiovascular: regular rate and rhythym Respiratory: no respiratory distress, clear to auscultation Gastrointestinal: normoactive bowel sounds, soft, non-tender abdomen Skin: warm Neurologic: AAOx3 Psychiatric: interacting appropriately ICD10 Worksheet Patient Problems: Problems Problem Status Onset Lumbar disc herniation Acute Lumbar stenosis Acute Severe low back pain Acute
[2016-10-09] MEDS ORDERED: CALCIUM CARBONATE 500 MG CHEWABLE TAB PO PRN (15:27)
[2016-10-09] MEDS: oxyCODONE IR 5 MG TAB PO PRN (20:08)
[2016-10-09] MEDS: FAMOTIDINE 20 MG TAB PO SCH (20:08)
[2016-10-09] MEDS: traMADol 50 MG TAB PO PRN (22:10)
[2016-10-10] MEDS: oxyCODONE IR 5 MG TAB PO PRN ×3 (04:37→20:36)
[2016-10-10] MEDS: METHOCARBAMOL 500 MG TAB PO SCH ×4 (04:37→20:33)
[2016-10-10 05:09] LABS: % IMMATURE GRANULYOCYTES 0.5 % (0.0-1.1); ABSOLUTE IMMATURE GRANULOCYTES 0.05 10^3/uL (0.00-0.10); ADD DIFF? NO; ADD MORPH? NO; ADD SCAN? NO; ATYPICAL LYMPHOCYTE FLAG 0 (0-99); FRAGMENT RBC FLAG 0 (0-99); HEMOGLOBIN 11.7 g/dL (13.7-17.5); LEFT SHIFT FLG 0 (0-99); LIPEMIA HEMOLYSIS FLAG 90 (0-99); MEAN CELL HEMOGLOBIN 33.1 pg (27.9-34.1); MEAN CELL HEMOGLOBIN CONCENTR. 34.4 g/dL (32.4-36.7); MEAN CELL VOLUME 96.3 fL (81.5-99.8); MEAN PLATELET VOLUME 9.9 fL (8.7-11.7); PLATELET CLUMPS FLAG 0 (0-99); PLATELET COUNT 227 10^3/uL (150-400); RED BLOOD CELL COUNT 3.53 10^6/uL (4.40-6.38); RED CELL DISTRIBUTION WIDTH 12.4 % (11.5-15.2)
[2016-10-10 05:33] LABS: ANION GAP 9 mEq/L (8-16); CALCIUM 8.8 mg/dL (8.5-10.4); CARBON DIOXIDE 21 mEq/l (22-31); CHLORIDE 105 mEq/L (97-110); CREATININE 0.8 mg/dL (0.7-1.3); GLOMERULAR FILTRATION RATE > 60; GLUCOSE 108 mg/dL (70-100); POTASSIUM 4.4 mEq/L (3.5-5.2); SODIUM 135 mEq/L (134-144)
[2016-10-10] MEDS: FAMOTIDINE 20 MG TAB PO SCH ×2 (08:20→20:33)
[2016-10-10] MEDS: SENNOSIDES/DOCUSATE SODIUM TAB PO SCH ×2 (08:20→20:33)
[2016-10-10] MEDS: METOPROLOL SUCCINATE XR 50 MG TAB PO SCH ×2 (08:20→20:33)
[2016-10-10] MEDS: LISINOPRIL 40 MG TAB PO SCH (08:20)
[2016-10-10] MEDS: MAGNESIUM OXIDE 400 MG TAB PO SCH (08:20)
--- NOTE | 2016-10-10 10:43 | SOAPPROG ---
SOAP Progress Note Assessment/Plan: Assessment: POD #1 s/p Left L2/3 LUIS Per RN, patient has not been compliant with PT ongoing weakness in legs, but feels like both of his Dorsiflexors are stronger left leg pain improved Plan: PT/OT as tolerated Change dressing Dispo likely to rehab due to need for walking assistance 10/10/16 12:28 Subjective: awake, alert, pain controlled. He notes his left leg pain is improved. He feels like both foot DF are stronger as well. Objective: Vital Signs Temp Pulse Resp BP Pulse Ox 36.5 C 60 15 124/82 H 95 10/10/16 07:47 10/10/16 07:47 10/10/16 07:47 10/10/16 07:47 10/10/16 07:47 Laboratory Results 10/10/16 04:36 10/10/16 04:36 10/09/16 10/10/16 10/11/16 05:59 05:59 05:59 Intake Total 1750 Output Total 750 950 Balance -750 800 Neuro: CRANDALL, sens +LT ongoing right foot weakness in DF/EHL 4/5 ambulates w walker and standby assist due to left leg buckling Dressing: CLean and dry. needs to be changed though b/c it isn't sticking well ICD10 Worksheet Patient Problems: Problems Problem Status Onset Lumbar disc herniation Acute Lumbar stenosis Acute Severe low back pain Acute
[2016-10-10] MEDS: KETOROLAC 15 MG/1 ML SDV IVP SCH ×2 (12:28→17:56)
--- NOTE | 2016-10-10 13:16 | HOSPPROG ---
Hospitalist Progress Note Assessment/Plan: L2-L3 disc herniation s/p discectomy - POD #1. Post-op management per neurosurgery, pain control, PT/OT. Hypertension - well controlled, cont lisinopril, metoprolol DVT PPLX - Lovenox Full code Dispo - cont inpt, PT/OT. Will go to Rehab in [place], possibly dc tomorrow or whenever cleared by surgery service Subjective: Pt doing well. Still some pain, tingling in LLE. Objective: Vital Signs Temp Pulse Resp BP Pulse Ox 37.2 C 80 16 133/77 H 91 L 10/10/16 11:57 10/10/16 11:57 10/10/16 11:57 10/10/16 11:57 10/10/16 11:57 Laboratory Results 10/10/16 04:36 10/10/16 04:36 10/09/16 10/10/16 10/11/16 05:59 05:59 05:59 Intake Total 1750 Output Total 750 950 Balance -750 800 - Physical Exam Constitutional: no apparent distress Eyes: PERRL Ears, Nose, Mouth, Throat: moist mucous membranes Cardiovascular: regular rate and rhythym Respiratory: no respiratory distress Skin: warm Musculoskeletal: other (LE sensation intact) Neurologic: AAOx3 Psychiatric: interacting appropriately ICD10 Worksheet Patient Problems: Problems Problem Status Onset Lumbar disc herniation Acute Lumbar stenosis Acute Severe low back pain Acute
[2016-10-11] MEDS: KETOROLAC 15 MG/1 ML SDV IVP SCH ×3 (02:21→12:39)
--- NOTE | 2016-10-11 05:40 | SOAPPROG ---
SOAP Progress Note Assessment/Plan: Assessment: POD #2 s/p Left L2/3 LUIS ongoing weakness in legs, but feels like both of his Dorsiflexors are stronger left leg pain improved Plan: PT/OT as tolerated Added Keflex 500mg PO Q6 hrs x 24 hrs. pt had first dose this AM Dispo likely to rehab due to need for walking assistance Ok to DC from Neurosurg standpoint Discussed with Dr. Sarmiento 10/11/16 07:27 Subjective: asleep, wakes easily and states his pain is controlled no new issues Objective: Vital Signs Temp Pulse Resp BP Pulse Ox 37.2 C 61 16 123/79 H 91 L 10/11/16 04:00 10/11/16 04:00 10/11/16 04:00 10/11/16 04:00 10/11/16 04:00 Laboratory Results 10/10/16 04:36 10/10/16 04:36 10/09/16 10/10/16 10/11/16 05:59 05:59 05:59 Intake Total 1750 250 Output Total 750 950 Balance -750 800 250 Incision:CDI, steri strips in place, no drainage Neuro: CRANDALL, sens +LT right DF weakness improved left 5-/5 ICD10 Worksheet Patient Problems: Problems Problem Status Onset Lumbar disc herniation Acute Lumbar stenosis Acute Severe low back pain Acute
[2016-10-11] MEDS: CEPHALEXIN 500 MG CAP PO SCH ×2 (06:01→12:32)
[2016-10-11] MEDS: METHOCARBAMOL 500 MG TAB PO SCH ×2 (06:02→12:32)
[2016-10-11] MEDS: FAMOTIDINE 20 MG TAB PO SCH (08:18)
[2016-10-11] MEDS: MAGNESIUM OXIDE 400 MG TAB PO SCH (08:19)
[2016-10-11] MEDS: METOPROLOL SUCCINATE XR 50 MG TAB PO SCH (08:19)
[2016-10-11] MEDS: LISINOPRIL 40 MG TAB PO SCH (08:19)
[2016-10-11] MEDS: SENNOSIDES/DOCUSATE SODIUM TAB PO SCH (08:44)
[2016-10-11] MEDS ORDERED: ENOXAPARIN 40 MG/0.4 ML SYR SC SCH (09:00)
[2016-10-11 09:55] VITALS: RESP 15
[2016-10-11 12:10] VITALS: BP 148/77; PULSE 86; TEMP 97.8; O2SAT 90
--- NOTE | 2016-10-11 13:52 | PDIAF ---
- Diagnosis Diagnosis: L2-3 hemilaminectomy, diskectomy Code Status: Full Code - Medication Management Discharge Medications: Medications to Continue on Transfer Aspirin [Aspirin 81mg (*)] 81 mg PO DAILY 10/05/16 [Last Taken Unknown] Gabapentin [Neurontin 100 MG (*)] 200 mg PO BID 10/05/16 [Last Taken 10/04/16 100 MG] Herbals/Supplements -Info Only 1 ea PO DAILY 10/05/16 [Last Taken Unknown] Lisinopril [Zestril 40 mg (*)] 40 mg PO DAILY 10/05/16 [Last Taken Unknown] Metoprolol Succinate Xr [Toprol Xl 50 mg (*)] 50 mg PO BID 10/05/16 [Last Taken Unknown] Cephalexin [Keflex (*)] 500 mg PO Q6HRS #2 cap 10/11/16 [Last Taken Unknown] Methocarbamol [Robaxin 500 mg (*)] 1,000 mg PO QID PRN #60 tab 10/11/16 [Last Taken Unknown] Sennosides/Docusate Sodium [Senokot-S] 1 - 2 tab PO BID #60 tab 10/11/16 [Last Taken Unknown] oxyCODONE IR [Oxycodone Ir (*)] 5 - 10 mg PO Q3HRS PRN #30 tab 10/11/16 [Last Taken Unknown] traMADol HCL [Ultram] 50 - 100 mg PO BID PRN #30 tablet 10/11/16 [Last Taken Unknown] Discharge Medications: Refer to the Discharge Home Medication list for PRN reason. PICC Care - Routine: N/A - Orders Services needed: Registered Nurse, Physical Therapy, Occupational Therapy Diet Recommendation: no restrictions on diet Diet Texture: Regular Texture Diet Additional: call for follow up appointment with Dr. Atkins - Follow Up Care Current Providers and Referrals: NONE *PRIMARY CARE P,. [Primary Care Provider] - As per Instructions Edenilson Atkins MD [Medical Doctor] -
--- NOTE | 2016-10-12 07:35 | GDS ---
[f rep st] DISCHARGE SUMMARY DISCHARGE DIAGNOSES: 1. L2-L3 disk herniation with radiculopathy. 2. Status post L2-L3 posterior hemilaminectomy, medial facetectomy, and diskectomy. 3. Hypertension. CONSULTANTS: Dr. Edenilson Atkins, neurosurgery. IMAGING STUDIES AND PROCEDURES: 1. Lumbar spine MRI October 05, 2016 showed a large left paramedian disk herniation extrusion resultin g in severe central canal stenosis at L2-L3 as well as moderate central canal stenosis secondary to central disk herniation protrusion and bilateral facet arthropathy at L4-L5 and moderate to severe b ilateral neuroforaminal stenosis secondary to bilateral facet arthropathy and degenerative disk dise ase at L5-S1. 2. L2-L3 posterior hemilaminectomy, medial facetectomy and diskectomy on October 09, [address] Edenilson Atkins. HISTORY: For details, please see history and physical dated October 05, 2016. In brief, the patient i s a 76-year-old male with a history of hypertension who presented to the emergency department with o ngoing back pain since a traumatic injury after being thrown back on a horse 3 months prior to the [facility]. MRI showed disk herniation resulting in severe canal stenosis. Neurosurgery was consulted,and the patient was admitted to the hospital for further management. HOSPITAL COURSE: The patient was admitted to the medical-surgical unit. He received acute pain con trol. Neurosurgery was consulted, and given his inability to ambulate safely at home, he was kept i n the hospital until surgery could be performed as described above. There were no complications wit h his postop course. His blood pressure was fairly well controlled on his regular outpatient medica tions. Due to his ongoing difficulty with ambulation and pain symptoms, he is transferred to a [facility] nursing facility at discharge. DISPOSITION: The [facility] condition. FOLLOWUP: 1. Dr. Edenilson Atkins. 2. Primary care. DISCHARGE MEDICATIONS: Please see [employer] for complete updated outpatient medication list. 1. New medications on discharge include cephalexin 500 mg p.o. q.6 hours, , to complete 4 doses at the request of neurosurgery. 2. Robaxin 1000 mg p.o. four times daily p.r.n. #60, no refills. 3. Oxycodone 5-10 mg p.o. q.3 hours p.r.n., #30, no refills. 4. Senokot 1-2 tabs p.o. twice daily, #60, no refills. He will continue all other outpatient medications as previously prescribed. /[id number]/MODL
== END 2016-10-11 17:14 | DRG 520 ==
LOC: F3N 12:00
PROVIDERS: ADMIT Internal Medicine; ATTEND Internal Medicine
PROC: 0SB20ZZ Excision of Lumbar Vertebral Disc, Open Approach (ICD-10-PCS; principal; 2016-10-09 07:15)
DX: M51.16 Intervertebral disc disorders with radiculopathy, lumbar region (principal); I10 Essential (primary) hypertension
CPT/HCPCS: 96374; 97116-GP; 97161-GP; 97164-GP; 97165-GO; 97535-GO; G8978-GP-CI; G8978-GP-CL; G8979-GP-CI; G8979-GP-CJ; G8987-GO-CK; G8988-GO-CI; J0690; J1100; J1170; J1650; J1885; J2060; J2405; J2704; J3010

== ENCOUNTER → 2017-03-08 | Outpatient (CLI) | payer OTHER ==
[~2017-03-08] MED LIST: IOPAMIDOL (ISOVUE-300) 100 ML BTL ONE
== END ==
LOC: FIMAGING 10:13
PROVIDERS: ATTEND Internal Medicine Cardiovascular Disease
DX: J90 Pleural effusion, not elsewhere classified (principal); J98.11 Atelectasis
CPT/HCPCS: 71260; Q9967

== ENCOUNTER → 2018-05-26 | Outpatient (CLI) | payer OTHER | LOC: BHFA 15:00 | PROVIDERS: ATTEND Internal Medicine Cardiovascular Disease | DX: I71.2 Thoracic aortic aneurysm, without rupture (principal); I10 Essential (primary) hypertension; R93.89 Abnormal findings on diagnostic imaging of other specified body structures ==

== ENCOUNTER → 2018-05-30 | Outpatient (CLI) | payer OTHER | LOC: BHFA 11:30 | PROVIDERS: ATTEND Internal Medicine Cardiovascular Disease | DX: I48.91 Unspecified atrial fibrillation (principal) ==

== ENCOUNTER → 2018-06-17 | Outpatient (CLI) | payer OTHER | LOC: FIMAGING 15:12 | PROVIDERS: ATTEND Internal Medicine Pulmonary Disease | DX: I26.99 Other pulmonary embolism without acute cor pulmonale (principal); J90 Pleural effusion, not elsewhere classified; J92.0 Pleural plaque with presence of asbestos; J98.11 Atelectasis | CPT/HCPCS: 71260; Q9967 ==